=== PATIENT | male | born 1955 | race Caucasian/White ===

== ENCOUNTER → 2019-02-25 08:04 | Outpatient (CLI) | payer BC ==
[2014-03-18 06:59] VITALS: BMI 22.5
[~2019-02-25 08:04] MED LIST: ASPIRIN EC81 M1 PO; CLARITIN 10 MG10 MG PO; CO Q-10100 MG PO; FISH OIL 1,0001 CA1 PO; MULTIPLE VITAMI1 TA1 PO; PRILOSEC20 MG PO; VYTORIN 10-40 M1 TAB PO; ZESTRIL20 MG PO
== END | disposition home or self-care (01) ==
LOC: D.HCCARDIO 08:04
PROVIDERS: ATTEND Internal Medicine Cardiovascular Disease
DX: I25.10 Atherosclerotic heart disease of native coronary artery without angina pectoris (principal)